=== PATIENT | male | born 1970 | race Caucasian/White ===

== ENCOUNTER 2019-06-29 18:51 | Emergency (ER) | payer OTHER ==
[~2019-06-29] VITALS: Ht 177.8 cm; Wt 89.4 kg
[2019-06-29 19:21] VITALS: BP 112/75
[2019-06-29 19:23] VITALS: BP 112/75
[2019-06-29 19:26] VITALS: BP 112/75
--- NOTE | 2019-06-29 19:47 | ER.PDOC ---
General Chief Complaint: Extremities Stated Complaint: R ANKLE INJURY Time seen by MD: 19:15 Source: patient Exam Limitations: no limitations History of Present Illness Initial Comments Pt in with complaint of burning and pain on his right lower leg. He uses his foot at work quite a bit and noticed today it was painful and burning. Onset: this afternoon Severity: moderate Context: other (no known injury noticed burning and pain started today) Associated Symptoms: swelling Past Medical History Medical History: no pertinent history Surgical History: knee Social History Alcohol Use: none Drug Use: none Review of Systems Constitutional: no symptoms reported EENTM: no symptoms reported Respiratory: no symptoms reported Cardiovascular: no symptoms reported Gastrointestinal: no symptoms reported Genitourinary: no symptoms reported Musculoskeletal: joint pain Skin: other (redness and warmth noted on right lower leg mild swelling) All Other Systems: Reviewed and Negative Physical Exam General Appearance: Alert, No Apparent Distress Foot: nml inspection Ankle: tenderness Gait: limited by pain Neuro: sensation nml, motor nml Vascular: no vascular compromise Tendons: tendon function deficit Skin: warm/dry Neck/Back: nml inspection Resp/CVS: no resp distress Results/Orders Results/Orders Vital Signs Date Time Temp Pulse Resp B/P (MAP) Pulse Ox O2 Delivery O2 Flow Rate FiO2 06/29/19 19:26 97.6 106 18 06/29/19 19:23 97.7 98 17 112/75 (87) 96 Room Air 06/29/19 19:21 97.7 98 17 112/75 (87) 96 06/29/19 19:08 97.7 98 17 96 Departure Time of Disposition: 19:47 Disposition: 01 HOME, SELF-CARE Impression: Primary Impression: Cellulitis Additional Impression: Tendonitis of ankle Condition: Stable Referrals: PCP,UNKNOWN (PCP) PRIMARY CARE PROVIDER Additional Instructions: Tylenol and Motrin may be used for pain Return to ER if symptoms worsen Duration or Time Spent with Pa: 20 minutes Problem Qualifiers MARIN GALEANO NP Jun 29, 2019 19:47
[2019-06-29 19:51] VITALS: BP 103/71
== END 2019-06-29 19:52 | disposition home or self-care (01) ==
LOC: ER 18:51
DX: L03.115 Cellulitis of right lower limb (principal); M77.51 Other enthesopathy of right foot and ankle
CPT/HCPCS: 99283